=== PATIENT | female | born 1940 | race Caucasian/White ===

== ENCOUNTER 2020-08-02 05:57 | Inpatient (IN) | payer MEDICARE, OTHER ==
[2020-08-02] MEDS ORDERED: Nitroglycerin 2% Ointment 1 INCH/1 GM Packet ONE (06:30)
[2020-08-02 07:07] LABS: #Eosinphils 0.1 thou/uL (0.0-0.7); #Lymphocytes 0.7 thou/uL (1.20-3.40); #Monocytes 0.8 thou/uL (0.11-0.59); #Neutrophils 7.3 thou/uL (1.40-6.50); %Basophils 0.3 % (0.0-1.0); %Eosinophils 0.7 % (0.0-10.0); %Lymphocytes 7.4 % (21.0-51.0); %Monocytes 9.1 % (0.0-10.0); %Neutrophils 82.4 % (42.0-75.0); Hemoglobin 8.7 g/dL (12.0-16.0); Mean Corpuscular HGB CONC 30.9 g/dL (32.0-36.0); Mean Corpuscular Hemoglobin 27.4 pg (27.0-31.0); Mean Corpuscular Volume 88.7 fL (78.0-98.0); Mean Platelet Volume 7.7 fL (7.4-10.4); Platelet Count 253 thou/uL (130-400); RBC Distribution Width 17.1 % (11.5-14.5); Red Blood Cell (RBC) Count 3.17 mill/uL (4.20-5.40); White Blood Cell (WBC) Count 8.8 thou/uL (4.8-10.8)
[2020-08-02 07:29] LABS: ALT (SGPT) 7 U/L (8-55); AST (SGOT) 17 U/L (5-34); Albumin 3.3 g/dL (3.4-4.8); Alkaline Phosphatase 52 U/L (40-110); Anion Gap 15 mmol/L (10-20); BUN (Urea Nitrogen) 20 mg/dL (9.8-20.1); Bilirubin, Total 0.5 mg/dL (0.2-1.2); Calc. Creatinine Clearance 0 mL/min (70-130); Carbon Dioxide 31 mmol/L (23-31); Chloride 97 mmol/L (98-107); Estimated GFR-MDRD 11; Globulin 3.1 g/dL (2.4-3.5); Glucose 145 mg/dL (83-110); Potassium 3.4 mmol/L (3.5-5.1); Protein, Total 6.4 g/dL (6.0-8.3); Sodium 140 mmol/L (136-145)
[2020-08-02] MEDS ORDERED: Labetalol HCl 100 MG/20 ML VIAL ONE (07:44)
[2020-08-02 07:51] LABS: CKMB 2.5 ng/mL (0-6.6)
[2020-08-02] MEDS ORDERED: Ondansetron PF 4 MG/2 ML Vial IVP PRN (08:35)
[2020-08-02] MEDS ORDERED: HumaLOG 300 UNITS/3 ML VIAL SC PRN (08:37)
[2020-08-02] MEDS ORDERED: Dextrose 50% Abboject 50 ML SYRINGE SLOW IVP PRN (08:37)
[2020-08-02] MEDS ORDERED: Dextrose 5% in Water 1,000 ML IV PRN (08:37)
--- NOTE | 2020-08-02 09:05 | PDOC.EVN ---
Event Note - Event Note Event Note: Addendum to dictated H&P: Discussed Pleural effusion management with pulmonology. Recommended HD rather than thoracentesis since her effusion is chronic in nature.
[2020-08-02 10:49] VITALS: BMI 20.7
[2020-08-02] MEDS ORDERED: FLU VACC QS2020-21(65YR UP)/PF 240 MCG/0.7 ML SYRINGE IM ONE (11:15)
--- NOTE | 2020-08-02 11:26 | RAD ---
PORTABLE CHEST: HISTORY: Difficulty breathing. COMPARISON: 12/22/2019 exam. FINDINGS: Heart size is enlarged. There are postop sternotomy changes. Right-sided pleural and parenchymal alvaro ng changes are fairly similar to the prior examination. There is slight increased appearance to the pleural changes with less aeration of the right lung base. There is pulmonary vascular engorgement. There is a smaller left pleural effusion. There are some patchy mid lung field parenchymal changes on the left which could be on the basis of edema. Infiltrate is not excluded. IMPRESSION: 1. Large right pleural effusion with associated lung changes. Findings are slightly more pronounced but fairly similar to a 12/22/2019 exam. 2. Left-sided pleural effusion which is small. Increased interstitial markings and pulmonary vascul ar engorgement suggests some element of edema. POS: OFF
[2020-08-02 15:10] LABS: HBCM Index 0.08 S/CO (0-0.79); HBSAg Index 0.18 S/CO (0-0.99); Hep A IgM AB Non-Reactive (NonReactive); Hep A IgM S/CO 0.15 S/CO (0-0.79); Hep B Surf Ag Non-Reactive S/CO (NonReactive); Hep C IgG Ab Non-Reactive (NonReactive); Hep C Index 0.09 S/CO (0-0.79); Hepatitis B Core IgM Abs Non-Reactive (NonReactive)
--- NOTE | 2020-08-02 15:53 | HP ---
CHIEF COMPLAINT: Shortness of breath. HISTORY OF PRESENT ILLNESS: The patient is an 80-year-old female with past medical history of diabetes mellitus, type 2; hypertension; hyperlipidemia; end-stage renal disease, on hemodialysis; CHF; and coronary artery disease, status post stenting last year, who presented to the hospital with complaints of shortness of breath that started after her dialysis on Monday and progressed over the weekend. The patient's symptoms caused her to wake up from sleep earlier today. She was gasping for breath and her brought her to the emergency department. In the ER, the patient was found to be in respiratory distress and supplemental oxygen was administered to maintain her oxygen saturations in the normal range. Her cash applications coordinator, Dr. Moss was consulted and he recommended immediate hemodialysis. The patient denies chest pain, palpitations, nausea, vomiting, or dizziness. REVIEW OF SYSTEMS: Negative except as noted in HPI. PAST MEDICAL HISTORY: As noted above. PAST SURGICAL HISTORY: Includes AV fistula in the left arm, CABG surgery, and kidney surgery. SOCIAL HISTORY: The patient denies alcohol use, illicit drug use, or smoking. ALLERGIES: NO KNOWN DRUG ALLERGIES. FAMILY HISTORY: Noncontributory for her current presentation. PHYSICAL EXAMINATION: GENERAL: The patient is alert and oriented x3. HEENT: Her head is normocephalic and atraumatic. Extraocular muscles are intact. NECK: Supple. CHEST: Clear to auscultation on the left side and diminished on the right side. CARDIOVASCULAR: Revealed normal S1 and S2. Regular rate and rhythm. No murmurs, rubs, or gallops. ABDOMEN: Soft, nontender, and nondistended. EXTREMITIES: No significant edema on her lower extremities. NEUROLOGIC: Unremarkable for any focal deficits. PERTINENT DATA: The patient's chest x-ray revealed right-sided pleural effusion and her laboratory studies revealed elevated BNP of 4400, slightly elevated troponin of 0.116, and creatinine level of 4 with potassium of 3.4. Her CBC revealed mild anemia with hemoglobin of 8.7. ASSESSMENT: 1. Acute respiratory failure with hypoxia. 2. Volume overload. 3. End-stage renal disease, on hemodialysis. 4. Congestive heart failure. 5. Coronary artery disease, status post coronary artery bypass grafting and stenting. 6. Moderate right-sided pleural effusion. PLAN: The patient will be admitted to the patient will be admitted to telemetry unit. She will undergo immediate dialysis today and subsequent dialysis per Nephrology recommendations. I have restarted her cardiac medications including aspirin, Plavix, carvedilol, hydralazine, Imdur, and losartan. We will repeat echocardiogram since I do not see recent one in the system. There is a moderate to large pleural effusion on the right side on chest x-ray. I will consult with Pulmonology on whether we need to drain this or manage fluid removal with dialysis. Low-dose enoxaparin for DVT prophylaxis. The patient is generally weak and has been using a walker and wheelchair at home. Her stated that her condition has deteriorated since she started outpatient physical therapy due to the coronavirus pandemic. I will consult PT and OT for evaluation and treatment. Job ID: [id number]
[2020-08-02] MEDS: Aspirin 81 mg Enteric Coated Tablet PO SCH (15:59)
[2020-08-02] MEDS: Clopidogrel Bisulfate 75 MG TAB PO SCH (15:59)
[2020-08-02] MEDS: hydrALAZINE 25 MG TAB PO SCH ×3 (16:00→20:36)
[2020-08-02] MEDS: Losartan 25 MG TAB PO SCH (16:00)
[2020-08-02] MEDS: Famotidine 20 MG TAB PO SCH ×2 (16:00→20:36)
[2020-08-02] MEDS: Enoxaparin Sodium 30 MG/0.3 ML SYRINGE SC SCH (16:00)
[2020-08-02] MEDS: Sevelamer Carbonate 800 MG TAB PO SCH ×2 (16:01→16:37)
[2020-08-02] MEDS: Carvedilol 6.25 MG TAB PO SCH (16:37)
[2020-08-02 19:13] LABS: HBSAB Concentration Less than 8.00 mIU/mL; HBSAg Index 0.18 S/CO (0-0.99); Hep B Core Total Ab Non-Reactive (NonReactive); Hep B Core Total Index 0.13 S/CO (0-0.79); Hep B Surf AB Non-Reactive (NonReactive); Hep B Surf Ag Non-Reactive S/CO (NonReactive)
[2020-08-02] MEDS: Atorvastatin Calcium 40 MG TAB PO SCH (20:36)
[2020-08-02] MEDS: Acetaminophen 325 MG TAB PO PRN (20:48)
[2020-08-03 04:40] LABS: #Lymphocytes 0.6 thou/uL (1.20-3.40); #Monocytes 0.8 thou/uL (0.11-0.59); #Neutrophils 6.2 thou/uL (1.40-6.50); %Basophils 0.6 % (0.0-1.0); %Eosinophils 0.5 % (0.0-10.0); %Lymphocytes 7.7 % (21.0-51.0); %Monocytes 10.7 % (0.0-10.0); %Neutrophils 80.6 % (42.0-75.0); Hemoglobin 9.2 g/dL (12.0-16.0); Mean Corpuscular HGB CONC 30.4 g/dL (32.0-36.0); Mean Corpuscular Hemoglobin 26.9 pg (27.0-31.0); Mean Corpuscular Volume 88.7 fL (78.0-98.0); Platelet Count 248 thou/uL (130-400); RBC Distribution Width 17.2 % (11.5-14.5); White Blood Cell (WBC) Count 7.7 thou/uL (4.8-10.8)
[2020-08-03 05:00] LABS: Anion Gap 16 mmol/L (10-20); BUN (Urea Nitrogen) 17 mg/dL (9.8-20.1); Calc. Creatinine Clearance 11 mL/min (70-130); Calcium 8.4 mg/dL (7.8-10.44); Carbon Dioxide 26 mmol/L (23-31); Chloride 100 mmol/L (98-107); Estimated GFR-MDRD 14; Glucose 130 mg/dL (83-110); Potassium 4.1 mmol/L (3.5-5.1); Sodium 138 mmol/L (136-145)
--- NOTE | 2020-08-03 06:10 | CON ---
DATE OF CONSULTATION: 08/02/2020 CONSULTING PHYSICIAN: Dr. Granados from ER. REASON FOR CONSULTATION: Fluid overload, end-stage renal disease management and care. REASON FOR ADMISSION: Shortness of breath. HISTORY OF PRESENT ILLNESS: An 80-year-old white female with history of end-stage renal disease, on hemodialysis; diastolic heart ; coronary artery disease; came to the hospital with shortness of breath. The patient woke up this morning with shortness of breath, so they came to the hospital. She was hypoxic too and was found to have fluid overload and pleural effusion. Nephrology consulted for maintenance hemodialysis. The patient is still having short of breath. She was taken to dialysis and seen during dialysis. No nausea, vomiting, chest pain, or palpitation reported. PAST MEDICAL HISTORY: Positive for congestive heart failure, end-stage renal disease, coronary artery disease, anemia, type 2 diabetes, GI bleed. PAST SURGICAL HISTORY: CABG, hemorrhoidectomy, femoral repair, breast tumor removal, tonsillectomy, D and C, coronary artery stents. HOME MEDICATIONS: Reviewed. ALLERGIES: ERYTHROMYCIN, SOCIAL HISTORY: No smoking, alcohol, or illicit drugs. FAMILY HISTORY: Positive for stroke. REVIEW OF SYSTEMS: The following complete review of systems was negative, unless otherwise mentioned in the HPI or below: CONSTITUTIONAL: Weight loss or gain, ability to conduct usual activities. SKIN: Rash, itching. EYES: Double vision, pain. ENT/MOUTH: Nose bleeding, neck stiffness, pain, tenderness. CARDIOVASCULAR: Palpitations, dyspnea on exertion, orthopnea. RESPIRATORY: Shortness of breath, wheezing, cough, hemoptysis, fever or night sweats. GASTROINTESTINAL: Poor appetite, abdominal pain, heartburn, nausea, vomiting, constipation, or diarrhea. GENITOURINARY: Urgency, frequency, dysuria, nocturia. MUSCULOSKELETAL: Pain, swelling. NEUROLOGIC/PSYCHIATRIC: Anxiety, depression. ALLERGY/IMMUNOLOGIC: Skin rash, bleeding tendency. PHYSICAL EXAMINATION: GENERAL: This is a well-built female, in no apparent distress. VITAL SIGNS: Temperature 97.6, pulse 71, respiratory rate 20, blood pressure 120/57. HEENT: Atraumatic, normocephalic. Oral mucosa is moist. NECK: Supple. CV: S1 and S2. Rate and rhythm regular. RESPIRATORY: Clear. GI: Abdomen is soft. MUSCULOSKELETAL: No tenderness. No edema. DERMATOLOGIC: No skin rash. NEUROLOGIC: Alert and awake. PSYCHIATRIC: Normal mood and affect LABORATORY DATA: Hemoglobin is 8.7. Potassium 3.4, BUN is 20, creatinine 4.07. ASSESSMENT AND PLAN: 1. End-stage renal disease. Continue dialysis as tolerated. Plan to have dialysis today for fluid removal and then continue dialysis Monday, Monday, and Monday. 2. Hypokalemia. We will use 4K bath. 3. Edema. 4. Hypertension. 5. Anemia. We will add Epogen. 6. Hypoalbuminemia. Limit fluid intake. Follow with Pulmonology for pleural effusion. We will attempt to have ultrafiltration with dialysis and monitor pleural effusion. Thank you for the consult. We will follow. Job ID: [id number]
[2020-08-03] MEDS: Carvedilol 6.25 MG TAB PO SCH ×2 (08:00→16:40)
[2020-08-03] MEDS: hydrALAZINE 25 MG TAB PO SCH ×3 (08:00→21:31)
[2020-08-03] MEDS: Sevelamer Carbonate 800 MG TAB PO SCH ×3 (08:00→16:36)
--- NOTE | 2020-08-03 10:00 | PDOC.HOSPP ---
- Subjective Encounter Date: 08/03/20 Encounter Time: 09:59 Subjective: Patient seen and examined. No new complaints. No overnight events. Reports feeling better, "I am able to breath now". Denies any chest pain, endorses feeling slightly SOB on 4L NC. Denies any abdominal pain, N/V/D. - Objective Vital Signs & Weight: Vital Signs (12 hours) Temp Pulse Resp BP Pulse Ox 08/03/20 03:25 97.6 F 64 18 138/60 100 08/02/20 23:49 97.8 F 66 18 142/59 H 100 Weight Weight 106 lb 6.4 oz I&O: 08/02/20 08/03/20 08/04/20 06:59 06:59 06:59 Intake Total 480 Output Total 0 Balance 480 Result Diagrams: 08/03/20 04:08 08/03/20 04:08 Additional Labs: Accuchecks 08/02/20 08/02/20 20:55 17:13 POC Glucose 132 H 159 H Hospitalist ROS - Review of Systems Constitutional: denies: fever, chills Respiratory: reports: shortness of breath (mild, improved). denies: cough, hem optysis, pleuritic pain, sputum, wheezing Cardiovascular: denies: chest pain, palpitations, edema, light headedness Gastrointestinal: denies: nausea, vomiting, abdominal pain, constipation, melena, hematochezia Neurological: denies: weakness, change in speech, confusion All other systems reviewed; all pertinent +/- noted in HPI/Subj - Medication Medications: Active Medications Generic Name Dose Route Start Last Admin Trade Name Marilin PRN Reason Stop Dose Admin Acetaminophen 650 mg 08/02/20 08:35 08/02/20 20:48 Acetaminophen 325 Mg Tab PO 650 mg Q4H PRN Administration Headache/Fever/Mild Pain (1-3) Aspirin 81 mg 08/02/20 09:00 08/02/20 15:59 Aspirin 81 Mg Enteric Coated Tablet PO Not Given DAILY ROSALIND Atorvastatin Calcium 80 mg 08/02/20 21:00 08/02/20 20:36 Atorvastatin Calcium 40 Mg Tab PO 80 mg HS ROSALIND Administration Carvedilol 12.5 mg 08/02/20 17:00 08/02/20 16:37 Carvedilol 6.25 Mg Tab PO 12.5 mg BID-WM ROSALIND Administration Clopidogrel Bisulfate 75 mg 08/02/20 09:00 08/02/20 15:59 Clopidogrel Bisulfate 75 Mg Tab PO Not Given DAILY [facility] Enoxaparin Sodium 30 mg 08/02/20 09:00 08/02/20 16:00 Enoxaparin Sodium 30 Mg/0.3 Ml Syringe SC Not Given 0900 ROSALIND Hydralazine HCl 25 mg 08/02/20 09:00 08/02/20 20:36 Hydralazine 25 Mg Tab PO 25 mg TID ROSALIND Administration Isosorbide Mononitrate 30 mg 08/02/20 09:00 08/02/20 16:00 Isosorbide Mononitrate Er 30 Mg Tab PO Not Given DAILY [facility] Losartan Potassium 50 mg 08/02/20 09:00 08/02/20 16:00 Losartan 25 Mg Tab PO Not Given DAILY [facility] Ondansetron HCl 4 mg 08/02/20 08:35 08/02/20 20:36 Ondansetron Pf 4 Mg/2 Ml Vial IVP 4 mg Q6H PRN Administration Nausea/Vomiting Sevelamer Carbonate 800 mg 08/02/20 12:00 08/02/20 16:37 Sevelamer Carbonate 800 Mg Tab PO 800 mg TID-WM ROSALIND Administration - Exam General Appearance: NAD, awake alert Eye: anicteric sclera ENT: normocephalic atraumatic Neck: supple, symmetric, no JVD Heart: RRR, no murmur, no gallops, no rubs, normal peripheral pulses Respiratory: no wheezes, no ronchi, no tachypnea Respiratory - other findings: Right side diminished Gastrointestinal: soft, non-tender, non-distended, normal bowel sounds, no bruit, no guarding, no rigidity Extremities: no cyanosis, no edema Skin: no rashes Neurological: cranial nerve grossly intact, no focal deficits Psychiatric: normal affect, A&O x 3 Hosp A/P (1) Acute respiratory failure with hypoxia Code(s): J96.01 - ACUTE RESPIRATORY FAILURE WITH HYPOXIA Status: Acute (2) Volume overload Code(s): E87.70 - FLUID OVERLOAD, UNSPECIFIED Status: Acute (3) ESRD (end stage renal disease) on dialysis Code(s): N18.6 - END STAGE RENAL DISEASE; Z99.2 - DEPENDENCE ON RENAL DIALYSIS Status: Chronic (4) CHF (congestive heart failure) Code(s): I50.9 - HEART FAILURE, UNSPECIFIED Status: Chronic (5) HTN (hypertension) Code(s): I10 - ESSENTIAL (PRIMARY) HYPERTENSION Status: Chronic (6) DMII (diabetes mellitus, type 2) Status: Chronic (7) Hypokalemia Code(s): E87.6 - HYPOKALEMIA Status: Resolved (8) Anemia, chronic disease Code(s): D63.8 - ANEMIA IN OTHER CHRONIC DISEASES CLASSIFIED ELSEWHERE Status: Chronic - Plan # Acute hypoxic respiratory failure Currently on 4L NC (resting on upper lip), no acute distress Speaking in full sentences Continue supplemental oxygen echo pending. # Fluid volume overload Moderate Left pleural effusion, chronic Nephrology to treat with HD # ESRD Schedule is MWF by Dr. Moss Receiving HD today Appreciate nephrology recs. #CHF Echo pending # HTN Continue home meds - Coreg, imdur, hydralazine, losartan Continue to monitor BP # DMII Mild sliding scale Add bedtime ISS AC/HS #hypokalemia K 4.1 Nephrology recs appreciated Treating with K freddie #Anemia, chronic disease Likely d/t ESRD Nephrology recs appreciated Started on Epoetin Hgb. 9.2 H[address] Cloud.
[2020-08-03] MEDS ORDERED: HumaLOG 300 UNITS/3 ML VIAL SC PRN (10:05)
--- NOTE | 2020-08-03 12:27 | PRG ---
DATE OF SERVICE: 08/03/2020 SUBJECTIVE: An 80-year-old female, being seen for end-stage renal disease. The patient denied nausea, vomiting, or chest pain. PHYSICAL EXAMINATION: General: The patient is awake and alert. Vital Signs: Afebrile, pulse 74, breathing at 16, blood pressure 107/68. HEENT: Head normocephalic and atraumatic. Eyes intact, no ulcers. Nose intact, no ulcers. Ears intact, no ulcers. Neck: Supple. No JVD. Chest: Symmetrical and clear. Cardiovascular: Shows S1 and S2, no rub, no murmur. Gastrointestinal: Abdomen is soft, bowel sounds positive. Extremities: Show no edema or ulcers. Skin: Shows no rash or petechiae. Musculoskeletal: Shows no joint swelling or stiffness. Genitourinary: Shows no Arthur or CVA tenderness. Neurologic: Motor intact. Cranial nerves intact. LABORATORY DATA: Showed hemoglobin 9.2. ASSESSMENT AND PLAN: 1. Stage 6 chronic kidney disease, stable. 2. Hypertension, stable. 3. Anemia, stable. 4. Medication based on GFR, appropriate. Job ID: [id number]
[2020-08-03 14:00] LABS: SARS-CoV-2 MS2 Positive; SARS-CoV-2 N Gene Negative; SARS-CoV-2 S Gene Negative; SARS-CoV-2 by NAA Not Detected (NotDetected); SARS-CoV-2 orf1ab Negative
[2020-08-03] MEDS: FLUoxetine HCl 20 MG CAP PO SCH (14:06)
[2020-08-03] MEDS: Clopidogrel Bisulfate 75 MG TAB PO SCH (14:07)
[2020-08-03] MEDS: Losartan 25 MG TAB PO SCH (14:07)
[2020-08-03] MEDS: Aspirin 81 mg Enteric Coated Tablet PO SCH (14:07)
[2020-08-03] MEDS: Enoxaparin Sodium 30 MG/0.3 ML SYRINGE SC SCH (14:08)
[2020-08-03] MEDS: EPOETIN ALFA-EPBX (ESRD) 10,000 UNIT/ML VIAL IVP SCH (16:37)
[2020-08-03] MEDS: Famotidine 20 MG TAB PO SCH (21:32)
[2020-08-03] MEDS: Atorvastatin Calcium 40 MG TAB PO SCH (21:32)
[2020-08-04 04:36] LABS: #Basophils 0.1 thou/uL (0.0-0.2); #Eosinphils 0.1 thou/uL (0.0-0.7); #Lymphocytes 0.9 thou/uL (1.20-3.40); #Monocytes 0.9 thou/uL (0.11-0.59); #Neutrophils 4.7 thou/uL (1.40-6.50); %Basophils 0.8 % (0.0-1.0); %Eosinophils 1.1 % (0.0-10.0); %Lymphocytes 13.1 % (21.0-51.0); %Monocytes 13.9 % (0.0-10.0); Hemoglobin 9.2 g/dL (12.0-16.0); Mean Corpuscular HGB CONC 30.9 g/dL (32.0-36.0); Mean Corpuscular Hemoglobin 27.1 pg (27.0-31.0); Mean Corpuscular Volume 87.7 fL (78.0-98.0); Mean Platelet Volume 8.1 fL (7.4-10.4); Platelet Count 236 thou/uL (130-400); RBC Distribution Width 17.2 % (11.5-14.5); Red Blood Cell (RBC) Count 3.41 mill/uL (4.20-5.40); White Blood Cell (WBC) Count 6.5 thou/uL (4.8-10.8)
[2020-08-04 04:56] LABS: Anion Gap 15 mmol/L (10-20); BUN (Urea Nitrogen) 16 mg/dL (9.8-20.1); Calc. Creatinine Clearance 15 mL/min (70-130); Calcium 8.7 mg/dL (7.8-10.44); Carbon Dioxide 28 mmol/L (23-31); Chloride 99 mmol/L (98-107); Estimated GFR-MDRD 20; Glucose 88 mg/dL (83-110); Potassium 3.6 mmol/L (3.5-5.1); Sodium 138 mmol/L (136-145)
[2020-08-04] MEDS: Sevelamer Carbonate 800 MG TAB PO SCH ×3 (09:11→18:17)
[2020-08-04] MEDS: hydrALAZINE 25 MG TAB PO SCH ×2 (09:12→21:24)
[2020-08-04] MEDS: Aspirin 81 mg Enteric Coated Tablet PO SCH (09:12)
[2020-08-04] MEDS: Clopidogrel Bisulfate 75 MG TAB PO SCH (09:12)
[2020-08-04] MEDS: Losartan 25 MG TAB PO SCH (09:12)
[2020-08-04] MEDS: FLUoxetine HCl 20 MG CAP PO SCH ×2 (09:12→21:24)
[2020-08-04] MEDS: Carvedilol 6.25 MG TAB PO SCH ×2 (09:12→18:16)
[2020-08-04] MEDS: Enoxaparin Sodium 30 MG/0.3 ML SYRINGE SC SCH (09:13)
--- NOTE | 2020-08-04 16:56 | PDOC.HOSPP ---
- Subjective Encounter Date: 08/04/20 Encounter Time: 16:50 Subjective: f/u for CHF/volume overload in context of ESRD with HD. Feel SOB but overall improved. Still weak and taking small percentage of meals. - Objective Vital Signs & Weight: Vital Signs (12 hours) Temp Pulse Pulse Pulse Resp BP BP 08/04/20 12:48 64 83 120/59 L 08/04/20 11:50 98.4 F 71 16 08/04/20 09:12 70 142/59 H 08/04/20 08:00 98.2 F 70 18 BP BP Pulse Ox Pulse Ox Pulse Ox 08/04/20 12:48 121/60 100 100 08/04/20 11:50 120/59 L 99 08/04/20 09:12 08/04/20 08:00 142/89 H 100 Weight Weight 99 lb 11.2 oz I&O: 08/03/20 08/04/20 08/05/20 06:59 06:59 06:59 Intake Total 480 480 200 Output Total 0 0 Balance 480 480 200 Result Diagrams: 08/04/20 03:53 08/04/20 03:53 Additional Labs: Accuchecks 08/04/20 08/04/20 08/03/20 11:19 05:54 20:57 POC Glucose 97 91 91 Laboratory Tests 08/02/20 08/02/20 08/02/20 06:58 06:58 06:58 Hgb 8.7 L Potassium 3.4 L Creatinine 4.07 H B-Natriuretic Peptide 4409.7 H SARS-CoV-2 (PCR) 08/02/20 08/03/20 08/03/20 09:03 04:08 04:08 Hgb 9.2 L Potassium Creatinine 3.21 H B-Natriuretic Peptide SARS-CoV-2 (PCR) Not Detected Radiology Reviewed by me: Yes (PCXR - R>L pleural effusion, +edema) EKG Reviewed by me: Yes (Tele - SR) Hospitalist ROS - Medication Medications: Active Medications Generic Name Dose Route Start Last Admin Trade Name Freq PRN Reason Stop Dose Admin Acetaminophen 650 mg 08/02/20 08:35 08/02/20 20:48 Acetaminophen 325 Mg Tab PO 650 mg Q4H PRN Administration Headache/Fever/Mild Pain (1-3) Aspirin 81 mg 08/02/20 09:00 08/04/20 09:12 Aspirin 81 Mg Enteric Coated Tablet PO 81 mg DAILY ROSALIND Administration Atorvastatin Calcium 80 mg 08/02/20 21:00 08/03/20 21:32 Atorvastatin Calcium 40 Mg Tab PO 80 mg HS ROSALIND Administration Carvedilol 12.5 mg 08/02/20 17:00 08/04/20 09:12 Carvedilol 6.25 Mg Tab PO 12.5 mg BID-WM ROSALIND Administration Clopidogrel Bisulfate 75 mg 08/02/20 09:00 08/04/20 09:12 Clopidogrel Bisulfate 75 Mg Tab PO 75 mg DAILY ROSALIND Administration Enoxaparin Sodium 30 mg 08/02/20 09:00 08/04/20 09:13 Enoxaparin Sodium 30 Mg/0.3 Ml Syringe SC 30 mg 09 ROSALIND Administration Epoetin Ferny-epbx 10,000 unit 08/03/20 09:00 08/03/20 16:37 Epoetin Ferny-Epbx (Esrd) 10,000 Unit/Ml Vial IVP 10,000 unit MoWeFr ROSALIND Administration Famotidine 20 mg 08/03/20 21:00 08/03/20 21:32 Famotidine 20 Mg Tab PO 20 mg 2100 ROSALIND Administration Fluoxetine HCl 20 mg 08/03/20 09:00 08/04/20 09:12 Fluoxetine Hcl 20 Mg Cap PO 20 mg DAILY ROSALIND Administration Hydralazine HCl 25 mg 08/02/20 09:00 08/04/20 09:12 Hydralazine 25 Mg Tab PO 25 mg TID ROSALIND Administration Isosorbide Mononitrate 30 mg 08/02/20 09:00 08/04/20 09:12 Isosorbide Mononitrate Er 30 Mg Tab PO 30 mg DAILY ROSALIND Administration Losartan Potassium 50 mg 08/02/20 09:00 08/04/20 09:12 Losartan 25 Mg Tab PO 50 mg DAILY ROSALIND Administration Ondansetron HCl 4 mg 08/02/20 08:35 08/02/20 20:36 Ondansetron Pf 4 Mg/2 Ml Vial IVP 4 mg Q6H PRN Administration Nausea/Vomiting Sevelamer Carbonate 800 mg 08/02/20 12:00 08/04/20 13:56 Sevelamer Carbonate 800 Mg Tab PO 800 mg TID-WM ROSALIND Administration Sodium Chloride 10 ml 08/03/20 21:00 08/04/20 09:13 Flush - Normal Saline 10 Ml Syringe IVF 10 ml Q12HR ROSALIND Administration - Exam General Appearance: NAD, ill appearing Eye: PERRL, anicteric sclera ENT: normocephalic atraumatic, no oropharyngeal lesions Neck: supple, symmetric, no JVD, no thyromegaly, no lymphadenopathy Heart: RRR, no gallops, no rubs, normal peripheral pulses Heart - other findings: S1, S2 Respiratory: tachypneic Respiratory - other findings: diminished in bases, occ rhonchi Gastrointestinal: soft, non-tender, non-distended, normal bowel sounds, no palpable masses Extremities: no cyanosis, no edema Skin: normal turgor Neurological: cranial nerve grossly intact, no new deficit Musculoskeletal: generalized weakness Psychiatric: A&O x 3, flat affect Hosp A/P (1) Acute on chronic diastolic (congestive) heart failure Code(s): I50.33 - ACUTE ON CHRONIC DIASTOLIC (CONGESTIVE) HEART FAILURE Status: Acute Plan: Continue HD for volume removal, EF preserved 55-60% (2) Acute and chronic respiratory failure with hypoxia Code(s): J96.21 - ACUTE AND CHRONIC RESPIRATORY FAILURE WITH HYPOXIA Status: Acute Plan: Chronic O2 supplementation at home, continue pulmonary support, volume removal with HD (3) ESRD (end stage renal disease) on dialysis Code(s): N18.6 - END STAGE RENAL DISEASE; Z99.2 - DEPENDENCE ON RENAL DIALYSIS Status: Chronic Plan: HD per Renal service, will continue on outpt bases (4) Volume overload Code(s): E87.70 - FLUID OVERLOAD, UNSPECIFIED Status: Acute (5) HTN (hypertension) Code(s): I10 - ESSENTIAL (PRIMARY) HYPERTENSION Status: Chronic Qualifiers: Hypertension type: essential hypertension Qualified Code(s): I10 - Essential (primary) hypertension Plan: Resume home BP regimen, serial BP monitoring - Plan plan discussed w/ family, PT/OT, psych social worker, respiratory therapy, out of bed/ambulate, DVT proph w/SCDs Stable currently HD per Renal service O2 support, home O2 prior to admit 2D echo pending OOB with PT AM lab: CMP, CBC
--- NOTE | 2020-08-04 19:42 | PRG ---
DATE OF SERVICE: 08/04/2020 SUBJECTIVE: An 80-year-old female being seen for end-stage renal disease. The patient denied nausea, vomiting, or chest pain. PHYSICAL EXAMINATION: General: The patient is awake and alert. Vital Signs: Afebrile, pulse 75, breathing at 16, blood pressure 120/59. HEENT: Head normocephalic and atraumatic. Eyes intact, no ulcers. Nose intact, no ulcers. Ears intact, no ulcers. Neck: Supple. No JVD. Chest: Symmetrical and clear. Cardiovascular: Shows S1 and S2, no rub, no murmur. Gastrointestinal: Abdomen is soft, bowel sounds positive. Extremities: Show no edema or ulcers. Skin: Shows no rash or petechiae. Musculoskeletal: Shows no joint swelling or stiffness. Genitourinary: Shows no Arthur or CVA tenderness. Neurologic: Motor intact. Cranial nerves intact. LABORATORY DATA: Labs reviewed. ASSESSMENT AND PLAN: 1. Stage 6 chronic kidney disease, continue hemodialysis. 2. Hypertension, stable. 3. Anemia, stable. 4. Medication based on GFR, appropriate. Job ID: [id number]
[2020-08-04] MEDS: Acetaminophen 325 MG TAB PO PRN (21:24)
[2020-08-04] MEDS: Atorvastatin Calcium 40 MG TAB PO SCH (21:24)
[2020-08-04] MEDS: Famotidine 20 MG TAB PO SCH (21:25)
[2020-08-05 04:10] LABS: #Eosinphils 0.1 thou/uL (0.0-0.7); #Neutrophils 4.6 thou/uL (1.40-6.50); %Basophils 0.3 % (0.0-1.0); %Eosinophils 1.1 % (0.0-10.0); %Monocytes 14.3 % (0.0-10.0); %Neutrophils 69.3 % (42.0-75.0); Hemoglobin 9.1 g/dL (12.0-16.0); Mean Corpuscular Hemoglobin 27.1 pg (27.0-31.0); Mean Corpuscular Volume 87.4 fL (78.0-98.0); Mean Platelet Volume 8.2 fL (7.4-10.4); Platelet Count 249 thou/uL (130-400); Red Blood Cell (RBC) Count 3.37 mill/uL (4.20-5.40); White Blood Cell (WBC) Count 6.7 thou/uL (4.8-10.8)
[2020-08-05 04:48] LABS: ALT (SGPT) Less than 7 U/L (8-55); AST (SGOT) 12 U/L (5-34); Albumin 3.1 g/dL (3.4-4.8); Alkaline Phosphatase 50 U/L (40-110); Anion Gap 16 mmol/L (10-20); BUN (Urea Nitrogen) 34 mg/dL (9.8-20.1); Bilirubin, Total 0.3 mg/dL (0.2-1.2); Calc. Creatinine Clearance 8 mL/min (70-130); Calcium 8.7 mg/dL (7.8-10.44); Carbon Dioxide 26 mmol/L (23-31); Chloride 100 mmol/L (98-107); Estimated GFR-MDRD 11; Globulin 2.9 g/dL (2.4-3.5); Glucose 141 mg/dL (83-110); Potassium 3.7 mmol/L (3.5-5.1); Sodium 138 mmol/L (136-145)
--- NOTE | 2020-08-05 11:53 | PRG ---
DATE OF SERVICE: 08/05/2020 SUBJECTIVE: An 80-year-old female being seen for end-stage renal disease. The patient denies any nausea, vomiting, or chest pain. OBJECTIVE: GENERAL: On examination, the patient is awake and alert. VITAL SIGNS: Afebrile, pulse 75, breathing at 16, and blood pressure 132/62. HEENT: Head normocephalic and atraumatic. Eyes intact, no ulcers. Nose intact, no ulcers. Ears intact, no ulcers. NECK: Supple. No JVD. CHEST: Symmetrical and clear. CARDIOVASCULAR: Shows S1 and S2, no rub, no murmur. GASTROINTESTINAL: Abdomen is soft, bowel sounds positive. EXTREMITIES: Show no edema or ulcers. SKIN: Shows no rash or petechiae. MUSCULOSKELETAL: Shows no joint swelling or stiffness. GENITOURINARY: Shows no Arthur or CVA tenderness. NEUROLOGIC: Motor intact. Cranial nerves intact. LABORATORY DATA: Reviewed. ASSESSMENT AND PLAN: 1. Stage 6 chronic kidney disease, continue hemodialysis. 2. Hypertension, stable. 3. Anemia, stable. 4. Medications based on glomerular filtration rate are appropriate. Job ID: [id number]
[2020-08-05] MEDS ORDERED: ALPRAZolam 0.25 MG TAB PO PRN (14:47)
[2020-08-05] MEDS: Sevelamer Carbonate 800 MG TAB PO SCH ×2 (16:52→16:57)
[2020-08-05] MEDS: FLUoxetine HCl 20 MG CAP PO SCH ×2 (16:52→20:27)
[2020-08-05] MEDS: Clopidogrel Bisulfate 75 MG TAB PO SCH (16:53)
[2020-08-05] MEDS: Aspirin 81 mg Enteric Coated Tablet PO SCH (16:53)
[2020-08-05] MEDS: Losartan 25 MG TAB PO SCH (16:55)
[2020-08-05] MEDS: Enoxaparin Sodium 30 MG/0.3 ML SYRINGE SC SCH (16:55)
[2020-08-05] MEDS: Carvedilol 6.25 MG TAB PO SCH ×2 (16:56→17:00)
[2020-08-05] MEDS: hydrALAZINE 25 MG TAB PO SCH ×6 (16:56→20:28)
--- NOTE | 2020-08-05 16:58 | PDOC.HOSPP ---
- Subjective Encounter Date: 08/05/20 Encounter Time: 16:50 Subjective: f/u for CHF/volume overload in ESRD with HD today. Feels better overall and less SOB. - Objective Vital Signs & Weight: Vital Signs (12 hours) Temp Pulse Pulse Resp BP BP Pulse Ox 08/05/20 08:37 95 139/63 08/05/20 08:00 97.9 F 64 20 177/67 H 92 L Pulse Ox 08/05/20 08:37 100 08/05/20 08:00 Weight Weight 100 lb 12.8 oz I&O: 08/04/20 08/05/20 08/06/20 06:59 06:59 06:59 Intake Total 480 640 400 Output Total 0 Balance 480 640 400 Result Diagrams: 08/05/20 03:54 08/05/20 03:54 Additional Labs: Accuchecks 08/05/20 08/05/20 08/04/20 10:46 06:09 20:11 POC Glucose 125 H 129 H 186 H 08/04/20 17:15 POC Glucose 147 H Laboratory Tests 08/02/20 08/02/20 08/02/20 06:58 06:58 06:58 Hgb 8.7 L Potassium 3.4 L Creatinine 4.07 H B-Natriuretic Peptide 4409.7 H SARS-CoV-2 (PCR) 08/02/20 08/03/20 08/03/20 09:03 04:08 04:08 Hgb 9.2 L Potassium Creatinine 3.21 H B-Natriuretic Peptide SARS-CoV-2 (PCR) Not Detected EKG Reviewed by me: Yes (Tele - SR) Hospitalist ROS - Medication Medications: Active Medications Generic Name Dose Route Start Last Admin Trade Name Freq PRN Reason Stop Dose Admin Acetaminophen 650 mg 08/02/20 08:35 08/04/20 21:24 Acetaminophen 325 Mg Tab PO 650 mg Q4H PRN Administration Headache/Fever/Mild Pain (1-3) Aspirin 81 mg 08/02/20 09:00 08/04/20 09:12 Aspirin 81 Mg Enteric Coated Tablet PO 81 mg DAILY ROSALIND Administration Atorvastatin Calcium 80 mg 08/02/20 21:00 08/04/20 21:24 Atorvastatin Calcium 40 Mg Tab PO 80 mg HS ROSALIND Administration Carvedilol 12.5 mg 08/02/20 17:00 08/04/20 18:16 Carvedilol 6.25 Mg Tab PO 12.5 mg BID-WM ROSALIND Administration Clopidogrel Bisulfate 75 mg 08/02/20 09:00 08/04/20 09:12 Clopidogrel Bisulfate 75 Mg Tab PO 75 mg DAILY ROSALIND Administration Enoxaparin Sodium 30 mg 08/02/20 09:00 08/04/20 09:13 Enoxaparin Sodium 30 Mg/0.3 Ml Syringe SC 30 mg 0900 ROSALIND Administration Epoetin Ferny-epbx 10,000 unit 08/03/20 09:00 08/03/20 16:37 Epoetin Ferny-Epbx (Esrd) 10,000 Unit/Ml Vial IVP 10,000 unit MoWeFr ROSALIND Administration Famotidine 20 mg 08/03/20 21:00 08/04/20 21:25 Famotidine 20 Mg Tab PO 20 mg 2100 ROSALIND Administration Fluoxetine HCl 20 mg 08/04/20 21:00 08/04/20 21:24 Fluoxetine Hcl 20 Mg Cap PO 20 mg BID ROSALIND Administration Hydralazine HCl 25 mg 08/02/20 09:00 08/04/20 21:24 Hydralazine 25 Mg Tab PO 25 mg TID ROSALIND Administration Isosorbide Mononitrate 30 mg 08/02/20 09:00 08/04/20 09:12 Isosorbide Mononitrate Er 30 Mg Tab PO 30 mg DAILY ROSALIND Administration Losartan Potassium 50 mg 08/02/20 09:00 08/04/20 09:12 Losartan 25 Mg Tab PO 50 mg DAILY ROSALIND Administration Ondansetron HCl 4 mg 08/02/20 08:35 08/02/20 20:36 Ondansetron Pf 4 Mg/2 Ml Vial IVP 4 mg Q6H PRN Administration Nausea/Vomiting Sevelamer Carbonate 800 mg 08/02/20 12:00 08/04/20 18:17 Sevelamer Carbonate 800 Mg Tab PO 800 mg TID-WM ROSALIND Administration Sodium Chloride 10 ml 08/03/20 21:00 08/04/20 21:25 Flush - Normal Saline 10 Ml Syringe IVF 10 ml Q12HR ROSALIND Administration - Exam General Appearance: NAD, awake alert Eye: PERRL, anicteric sclera ENT: normocephalic atraumatic, no oropharyngeal lesions Neck: supple, symmetric, no JVD, no thyromegaly, no lymphadenopathy Heart: RRR, no gallops, no rubs, normal peripheral pulses Heart - other findings: S1, S2 Respiratory: no tachypnea Respiratory - other findings: diminished in R lower base, occ rhonchi Gastrointestinal: soft, non-tender, non-distended, normal bowel sounds, no palpable masses Extremities: no cyanosis, no clubbing, no edema Skin: normal turgor, no lesions Neurological: cranial nerve grossly intact, no new deficit Musculoskeletal: normal tone, generalized weakness Psychiatric: A&O x 3, flat affect Hosp A/P (1) Acute on chronic diastolic (congestive) heart failure Code(s): I50.33 - ACUTE ON CHRONIC DIASTOLIC (CONGESTIVE) HEART FAILURE Status: Acute Plan: Continue HD for volume mgmt, overall stabilizing (2) Acute and chronic respiratory failure with hypoxia Code(s): J96.21 - ACUTE AND CHRONIC RESPIRATORY FAILURE WITH HYPOXIA Status: Acute Plan: Near baseline O2 requirement at home (3) ESRD (end stage renal disease) on dialysis Code(s): N18.6 - END STAGE RENAL DISEASE; Z99.2 - DEPENDENCE ON RENAL DIALYSIS Status: Chronic Plan: HD completed today (4) Volume overload Code(s): E87.70 - FLUID OVERLOAD, UNSPECIFIED Status: Acute Plan: Improved with HD (5) HTN (hypertension) Code(s): I10 - ESSENTIAL (PRIMARY) HYPERTENSION Status: Chronic Qualifiers: Hypertension type: essential hypertension Qualified Code(s): I10 - Ess ential (primary) hypertension - Plan plan discussed w/ family, PT/OT, social sciences department chair, DVT proph w/SCDs Stable currently HD per Renal service O2 support, home O2 prior to admit 2D echo with EF 50-55%, severe LAE OOB with PT AM lab: CMP, CBC Likely home in am
[2020-08-05] MEDS: EPOETIN ALFA-EPBX (ESRD) 10,000 UNIT/ML VIAL IVP SCH (19:46)
[2020-08-05] MEDS: Famotidine 20 MG TAB PO SCH (20:27)
[2020-08-05] MEDS: Atorvastatin Calcium 40 MG TAB PO SCH (20:27)
[2020-08-06] MEDS: Aspirin 81 mg Enteric Coated Tablet PO SCH (08:33)
[2020-08-06] MEDS: Carvedilol 6.25 MG TAB PO SCH (08:33)
[2020-08-06] MEDS: FLUoxetine HCl 20 MG CAP PO SCH (08:34)
[2020-08-06] MEDS: hydrALAZINE 25 MG TAB PO SCH (08:34)
[2020-08-06] MEDS: Clopidogrel Bisulfate 75 MG TAB PO SCH (08:34)
[2020-08-06] MEDS: Sevelamer Carbonate 800 MG TAB PO SCH ×2 (08:34→11:57)
[2020-08-06] MEDS: Losartan 25 MG TAB PO SCH (08:34)
[2020-08-06] MEDS: Enoxaparin Sodium 30 MG/0.3 ML SYRINGE SC SCH (08:34)
[2020-08-06 11:39] VITALS: BP 119/56; TEMP 97.9
--- NOTE | 2020-08-06 18:00 | PRG ---
DATE OF SERVICE: 08/06/2020 SUBJECTIVE: An 80-year-old female, being seen for end-stage renal disease. The patient denied nausea, vomiting, or chest pain. OBJECTIVE: General: The patient is awake and alert. Vital Signs: Afebrile, pulse 75, breathing at 16, blood pressure was 190/56. HEENT: Head normocephalic and atraumatic. Eyes intact, no ulcers. Nose intact, no ulcers. Ears intact, no ulcers. Neck: Supple. No JVD. Chest: Symmetrical and clear. Cardiovascular: Shows S1 and S2, no rub, no murmur. Gastrointestinal: Abdomen is soft, bowel sounds positive. Extremities: Show no edema or ulcers. Skin: Shows no rash or petechiae. Musculoskeletal: Shows no joint swelling or stiffness. Genitourinary: Shows no Arthur or CVA tenderness. Neurologic: Motor intact. Cranial nerves intact. LABORATORY DATA: Reviewed. ASSESSMENT AND PLAN: 1. Stage 6 chronic kidney disease. Plan dialysis. 2. Hypertension. 3. Anemia, stable. 4. Medication based on GFR appropriate. Job ID: [id number]
--- NOTE | 2020-08-07 07:55 | DIS ---
DATE OF ADMISSION: 08/02/2020 DATE OF DISCHARGE: 08/06/2020 DISCHARGE DIAGNOSES: 1. Acute on chronic diastolic congestive heart failure, improved. 2. Acute on chronic hypoxic respiratory failure with oxygen at 3 L/min by nasal cannula. 3. End-stage renal disease, on hemodialysis. 4. Volume overload secondary to acute on chronic diastolic congestive heart failure and end-stage renal disease, on hemodialysis. 5. Hypertension. 6. Normocytic anemia secondary to chronic kidney disease. CONSULTATION: Jorge Stanford MD with Nephrology Service. PERTINENT LABORATORY AND X-RAY FINDINGS: Creatinine ranged between 2.33 to 4.07. Estimated GFR ranged between 11 to 20. BNP 4410. Troponin I 0.116. CBC showed a hemoglobin range between 8.7 to 9.2. COVID-19 PCR not detected, 08/02/2020. Hepatitis A, B, and C panel negative. Portable chest x-ray dated 08/02/2020 showed large right pleural effusion with atelectasis. Smaller left-sided pleural effusion. 2D transthoracic echocardiogram dated 08/03/2020 showed ejection fraction of 50% to 55%. Severe left atrial enlargement. Aortic valve sclerosis. [id number]-[id number] tricuspid regurgitation. Moderately elevated pulmonary artery pressure. HOSPITAL COURSE: The patient initially presented with increased shortness of breath with chest imaging showing a large right-sided pleural effusion in the context of known congestive heart failure and end-stage renal disease, requiring hemodialysis. The patient was continued on oxygen supplementation, and evaluated by the Nephrology Service, undergoing urgent hemodialysis. The patient underwent multiple hemodialysis sessions during her hospital course with overall stabilization of respiratory status and volume removal. The patient received general pulmonary supportive management in addition to oxygen supplementation, titrating down to her baseline oxygen requirement at 3 L/min by nasal cannula continuously. 2D transthoracic echocardiogram was evaluated showing overall preserved ejection fraction in the 50% to 55% range. The patient's presentation consistent with diastolic heart failure exacerbation. I have examined the patient at the time of discharge and discussed followup instructions. The patient verbalized understanding and agreement, ready for discharge on 08/06/2020. DISCHARGE MEDICATIONS: 1. Atorvastatin 80 mg p.o. at bedtime. 2. Carvedilol 12.5 mg p.o. b.i.d. 3. Plavix 75 mg p.o. daily. 4. Pepcid 20 mg p.o. daily. 5. Fluoxetine 20 mg p.o. b.i.d. 6. Isosorbide mononitrate 30 mg p.o. daily. 7. Losartan 50 mg p.o. at bedtime. 8. Sevelamer 800 mg p.o. at bedtime. 9. Hydralazine 25 mg p.o. t.i.d. FOLLOWUP: The patient to follow up at the [facility] within 7 days of discharge. The patient may follow up with Dr. León with Cardiology Service. The patient will follow up with Dr. Moss and Dr. Stanford with Nephrology Service. CONDITION ON DISCHARGE: Fair. ACTIVITY: Ad-emerita. DIET: Renal. CODE STATUS: Do not attempt resuscitation. DISPOSITION: Home, 08/06/2020. Total time preparing and coordinating discharge, 33 minutes. Job ID: [id number]
== END 2020-08-06 14:00 | disposition home or self-care (01) | DRG 291 ==
LOC: ERS 05:57 → ERHOLD 08:08 → 2NO 10:21
PROVIDERS: ADMIT Internal Medicine; ATTEND Internal Medicine
PROC: 5A1D70Z Performance of Urinary Filtration, Intermittent, Less than 6 Hours Per Day (ICD-10-PCS; principal; 2020-08-02)
DX: I13.2 Hypertensive heart and chronic kidney disease with heart failure and with stage 5 chronic kidney disease, or end stage renal disease (principal); N18.6 End stage renal disease; I50.33 Acute on chronic diastolic (congestive) heart failure; J96.21 Acute and chronic respiratory failure with hypoxia; Z20.828 Contact with and (suspected) exposure to other viral communicable diseases; E11.22 Type 2 diabetes mellitus with diabetic chronic kidney disease; E78.5 Hyperlipidemia, unspecified; E78.00 Pure hypercholesterolemia, unspecified; I25.10 Atherosclerotic heart disease of native coronary artery without angina pectoris; E87.6 Hypokalemia; D63.1 Anemia in chronic kidney disease; E88.09 Other disorders of plasma-protein metabolism, not elsewhere classified; Z99.2 Dependence on renal dialysis; Z95.5 Presence of coronary angioplasty implant and graft; Z95.1 Presence of aortocoronary bypass graft
CPT/HCPCS: 36415; 36416; 71045; 80048; 80053; 80074; 82553; 83735; 83880; 84484; 85025; 86704; 86706; 87340; 87635; 90935; 93005; 93306; 93798; 96374; G0257; J1650; J2405; Q5105; U0003

== ENCOUNTER 2020-09-10 11:44 | Inpatient (IN) | payer MEDICARE ==
[2020-09-10] MEDS ORDERED: Sodium Chloride 0.9% 1,000 ML IV SCH (12:30)
[2020-09-10 13:26] LABS: ALT (SGPT) Less than 7 U/L (8-55); AST (SGOT) 16 U/L (5-34); Albumin 3.4 g/dL (3.4-4.8); Alkaline Phosphatase 67 U/L (40-110); Anion Gap 17 mmol/L (10-20); BUN (Urea Nitrogen) 20 mg/dL (9.8-20.1); Bilirubin, Total 0.3 mg/dL (0.2-1.2); Calc. Creatinine Clearance 0 mL/min (70-130); Calcium 9.6 mg/dL (7.8-10.44); Carbon Dioxide 33 mmol/L (23-31); Chloride 96 mmol/L (98-107); Estimated GFR-MDRD 13; Glucose 204 mg/dL (83-110); Potassium 3.2 mmol/L (3.5-5.1); Protein, Total 7.4 g/dL (6.0-8.3); Sodium 143 mmol/L (136-145)
[2020-09-10] MEDS ORDERED: Cefepime 2 GM VIAL ONE (13:28)
[2020-09-10] MEDS ORDERED: Vancomycin 1 GM/200 ML BAG ONE (13:28)
--- NOTE | 2020-09-10 13:29 | RAD ---
EXAM: 3 views of the left foot HISTORY: Wounds on the second toes and medial foot COMPARISON: 08/20/2020 FINDINGS: 3 views of the left foot shows questionable irregularity of the proximal phalanx of the sec ond toe. This is stable compared to the prior examination. Evaluation is limited secondary to extensive osteopenia. Vascular calcifications are seen. No focal osseous erosions are identified. No soft tissue swelling is seen. IMPRESSION: Irregularity of the proximal phalanx of the second toe may represent an acute or chronic fracture.
[2020-09-10 13:42] LABS: #Eosinphils 0.1 thou/uL (0.0-0.7); #Monocytes 1.4 thou/uL (0.11-0.59); #Neutrophils 9.5 thou/uL (1.40-6.50); %Basophils 0.1 % (0.0-1.0); %Eosinophils 0.7 % (0.0-10.0); %Lymphocytes 8.5 % (21.0-51.0); %Monocytes 11.6 % (0.0-10.0); %Neutrophils 79.1 % (42.0-75.0); Hemoglobin 9.6 g/dL (12.0-16.0); Mean Corpuscular Hemoglobin 26.1 pg (27.0-31.0); Mean Corpuscular Volume 87.1 fL (78.0-98.0); Mean Platelet Volume 7.5 fL (7.4-10.4); Platelet Count 308 thou/uL (130-400); RBC Distribution Width 18.6 % (11.5-14.5); Red Blood Cell (RBC) Count 3.67 mill/uL (4.20-5.40)
[2020-09-10 13:52] LABS: Anisocytosis SLIGHT = 6-15 cells (100X) (0-5/hpf); Hypochromia SLIGHT = 6-15 cells (100X) (0-5/hpf); MDiff Complete? YES; Ovalocytes SLIGHT = 2-5 cells (100X) (0-1/hpf); Platelet Morphology Comment Appears Adequate; Polychromasia SLIGHT = 2-3 cells (100X) (0-2/hpf)
[2020-09-10] MEDS ORDERED: EPINEPHrine 1 MG/10 ML Abboject SYRINGE ONE (13:59)
[2020-09-10] MEDS ORDERED: Calcium Chloride 1 GM/10 ML Abboject SYRINGE ONE (13:59)
[2020-09-10] MEDS ORDERED: EPINEPHrine 1 MG/ML AMP ONE (13:59)
[2020-09-10] MEDS ORDERED: Rocuronium Bromide 10 MG/ML (10ML VIAL) ONE (13:59)
[2020-09-10] MEDS ORDERED: Sodium Bicarb 50 MEQ/50 ML Abboject 8.4% SYRINGE ONE (13:59)
[2020-09-10] MEDS ORDERED: hydrALAZINE 25 MG TAB PO SCH (15:30)
--- NOTE | 2020-09-10 15:59 | HP ---
PRIMARY CARE PHYSICIAN: Betzy Oropeza, advanced nurse practitioner. CHIEF COMPLAINT: Infection of foot. HISTORY OF PRESENT ILLNESS: This is an 80-year-old white female who has a history of coronary artery disease with CABG, diabetes, end-stage renal disease, and vascular disease. She was recently in the hospital for diastolic congestive heart failure exacerbation and was sent to rehab afterward. She had just gotten out of rehab and went to see a industrial refrigeration mechanic and had her toenails cut. They put a bandage over her toes on the left side and it was the 's understanding that he was not supposed to take it off for quite some time, so he took it off a couple of days ago after it had been on there for a couple of weeks. At that time, he noted that she had a lot of redness and some blackness to one of her toes, so he brought her in today to the hospital. She has not had any other symptoms like fevers or chills, just the pain in her toes and forefoot. In the emergency room, the patient was found to have a necrotic second toe with eschar and cellulitis going up to the midfoot. Also, she met sepsis criteria. She was given fluids and IV antibiotics after cultures and is being admitted to the hospital. They did have a hard time palpating the dorsalis pedis pulse on her left side; however, they were able to Doppler it. REVIEW OF SYSTEMS: CONSTITUTIONAL: No fevers. No chills. EYES: No double vision or blurred vision. EARS, NOSE, AND THROAT: No congestion, drainage, or sore throat. CARDIOVASCULAR: No chest pain. No palpitations or racing heart. PULMONARY: No coughing, wheezing, or shortness of breath. GASTROINTESTINAL: No abdominal pain. No nausea or vomiting. No diarrhea or constipation. GENITOURINARY: The patient does not make urine anymore. MUSCULOSKELETAL: No muscle aches or joint pains besides the foot pain on her left side. SKIN: See HPI. NEUROLOGIC: No numbness, tingling, or focal weakness. PAST MEDICAL HISTORY: 1. Coronary artery disease, status post CABG. 2. Diastolic congestive heart failure. 3. End-stage renal disease, on dialysis and seen by Dr. Moss. 4. Type 2 diabetes mellitus. 5. Anemia of chronic renal disease. 6. History of gastrointestinal bleed. 7. Chronic hypoxic respiratory failure, on 4 L nasal cannula at home. PAST SURGICAL HISTORY: 1. CABG. 2. Hemorrhoidectomy. 3. Right partial hip replacement. 4. Breast tumor removal. 5. Tonsillectomy. 6. D and C. 7. Coronary artery stents. SOCIAL HISTORY: The patient does not smoke since . No alcohol or illicit drug use. She is . She previously said she is a DNR. Today, she was not certain and said maybe she would not want to be resuscitated. Her medical decision maker will be her . His name is Giovanni Lopes and he is at the bedside. FAMILY HISTORY: No significant family medical history per the patient. ALLERGIES: 1. SHE WAS TOLD ONE TIME NOT TO TAKE IODINE, BUT IT WAS THEY BELIEVE DUE TO NOT WANTING TO HURT THE KIDNEYS. 2. LATEX. 3. LYRICA. 4. ERYTHROMYCIN. 5. TERRAMYCIN. CURRENT MEDICATIONS: 1. Famotidine 20 mg daily. 2. Plavix 75 mg daily. 3. Isosorbide mononitrate 30 mg daily. 4. Hydralazine 25 mg twice a day. 5. Carvedilol 6.25 mg 2 tablets twice a day. 6. Losartan 50 mg daily. 7. Atorvastatin 80 mg daily. 8. Sevelamer carbonate 800 mg daily at bedtime. PHYSICAL EXAMINATION: VITAL SIGNS: Blood pressure 152/61, pulse 79, respirations 20, temperature 98.6, O2 saturation 100% on 4 L nasal cannula. GENERAL: This is a well-developed, elderly white female, in no acute distress. HEENT: Pupils are equal, round, and reactive to light. Oropharynx is clear without lesions, erythema, or exudate. NECK: Supple. No lymphadenopathy. No thyroid nodules or enlargement. No JVD. HEART: Regular rate and rhythm. No murmurs, rubs, or gallops. LUNGS: Clear to auscultation bilaterally. No wheezes, crackles, or rhonchi. ABDOMEN: Soft and nontender to palpation. Normoactive bowel sounds. No hepatosplenomegaly or other masses. EXTREMITIES: The patient's left foot has cellulitis of the toes, black eschar and necrosis of the second toe, and also some cellulitis going on to the forefoot to about midway of the foot that is tender to palpation, mildly warm, and erythematous. The patient has a barely palpable dorsalis pedis pulse. The other foot has poor pulse as well, but has no evidence of infection or injury. The patient does have tenderness in the forefoot, but not tenderness in the toes themselves. She does not appear to have some decreased sensation there. SKIN: See extremity exam above. No other rashes noted. NEUROLOGIC: Decreased sensation in the toes. Otherwise intact strength and sensation in all extremities. No facial droop. PSYCHIATRIC: Alert and oriented x3. Normal mood and affect. LABORATORY DATA: CBC with a white blood cell count of 12,000, 79% neutrophils, hemoglobin 9.6, hematocrit 32.0, and platelet count 308. Complete metabolic panel is notable for potassium of 3.2, chloride of 96, carbon dioxide of 33, creatinine of 3.41, glucose of 204. The rest was normal. Lactic acid was initially elevated at 2.5. I did review the x-ray of the foot done in the emergency room along with the radiologist's report. It does show osteopenia and a persistent bony deformity of the proximal second toe, which may be an old chronic fracture. It does not appear different from her previous x-ray comparison from one month ago. ASSESSMENT: 1. Diabetic foot infection with necrotic toe and cellulitis. The patient has been given cefepime and vancomycin in the emergency room. We will continue these with renal dosing. She was bolused with fluids in the emergency room and has now been hypertensive. We will hold on further fluid administration given her end-stage renal disease status and her recent volume overload. Cultures are pending. 2. Peripheral vascular disease with poor flow into the foot where the infection is at. I will consult Dr. Augustin for evaluation to see if anything can be done to improve the blood flow or if the patient will need amputation. 3. End-stage renal disease, on dialysis. We will consult Dr. Moss. He has already been notified by the emergency room that his patient is here. 4. Diabetes mellitus type 2. We will get fingerstick blood sugars q.a.c. and at bedtime with a light insulin sliding scale. 5. Coronary artery disease with diastolic congestive heart failure, currently at baseline. We will continue oxygen. We will continue her home medications. 6. Gastrointestinal prophylaxis. We will continue the patient on Pepcid given her history of gastrointestinal bleed. 7. Deep venous thrombosis prophylaxis. We will put the patient on heparin subcutaneous. CODE STATUS: Currently, the patient is full code. I will have Palliative Care discuss this with her further and see if she really wants to be a DNR. Her medical decision maker, should she be incapacitated, is her , Giovanni Lopes. Job ID: [id number]
[2020-09-10 17:23] LABS: Lactic Acid 1.7 mmol/L (0.5-2.2)
--- NOTE | 2020-09-10 17:48 | CON ---
DATE OF CONSULTATION: HISTORY OF PRESENT ILLNESS: This is an 80-year-old female who has been on chronic hemodialysis for the past 6 years. She currently dialyzes Monday, Monday, and Monday. She has been nonambulatory for the past 2 years, but is able to painter set place according to her . In any event, she was recently hospitalized for chronic diastolic heart failure with volume overload and after workup including cardiac echo showing preserved systolic function, she underwent vigorous hemodialysis regimen and was discharged to rehab. Subsequent to podiatry, toenail clippings and dressings were removed by the today. She was found to have multiple drainage sites and a black of second left toe. She was then brought to the emergency room. PAST MEDICAL HISTORY: Significant for longstanding diabetes mellitus, hypertension, dyslipidemia, end-stage renal disease, diastolic heart failure, coronary artery disease, status post coronary bypass grafting at [facility] in 1988 and then stent procedures about [address] Rasmussen and more recently by Dr. León. She also had removal of a tumor from her left kidney about 6 years ago at [facility] at which time, she suffered a postoperative PR. PAST SURGICAL HISTORY: Otherwise, includes partial right hip replacement, breast tumor removal, tonsillectomy. SOCIAL HISTORY: She lives with her in the [place] area at least that is where she does her hemodialysis. MEDICATIONS: Include: 1. Pepcid. 2. Plavix. 3. Isosorbide. 4. Hydralazine. 5. Coreg. 6. Losartan. 7. Atorvastatin. ALLERGIES: TO ERYTHROMYCIN, LYRICA, LATEX. PHYSICAL EXAMINATION: GENERAL: She is alert, cooperative lady with a small statured, light weight of about 100 pounds, in no distress. NECK: No carotid bruits. LUNGS: Clear to auscultation. CARDIAC: Reveals a soft systolic murmur. Regular rhythm. ABDOMEN: Obese, nontender, and faint left flank scar. EXTREMITIES: She has palpable femoral pulses and a weak, but present right popliteal pulse. She has a relatively preserved Doppler signal in her right dorsalis pedis with no palpable pulse and the foot appears pale, but unremarkable. On the left foot, she has no significant Doppler signal in the DP or PT distribution, but does have a preserved peroneal signal. Her left second toe is necrotic. She has necrotic skin over the first metatarsal head medially and over the fifth metatarsal head laterally. She has a cellulitis. Her toes are stuck together and appear macerated. Any attempt to move them at the present time is accompanied by pain. PLAN: At this time is for angiography to assess for any superficial femoral artery disease that might be improved. Overall, I think the prognosis is poor for limb salvage and the patient is nonambulatory, so we will probably be looking at an above-knee amputation if the circulatory status cannot be improved. Job ID: [id number] [facility]
--- NOTE | 2020-09-10 17:58 | CON ---
DATE OF CONSULTATION: 09/10/2020 CONSULTING PHYSICIAN: Franc Juarez MD REASON FOR CONSULTATION: End-stage renal disease evaluation and care. REASON FOR ADMISSION: Infection of the foot. HISTORY OF PRESENT ILLNESS: An 80-year-old white female with history of coronary artery disease, type 2 diabetes, CABG, end-stage renal disease, peripheral vascular disease, came to the hospital with left foot pain. No fever or chills. No nausea or vomiting. The patient recently had some toenails cut, and after that, she started noticing some redness. No chest pain or palpitation. The patient due for dialysis tomorrow. She usually gets dialysis Monday, Monday, and Monday. Cardiovascular surgeon was also evaluating her and plan is to have a contrast study tomorrow. PAST MEDICAL HISTORY: Positive for coronary artery disease; end-stage renal disease, on hemodialysis; congestive heart failure; type 2 diabetes; anemia; GI bleed; chronic hypoxic respiratory failure. PAST SURGICAL HISTORY: CABG, hemorrhoidectomy, hip surgery, breast tumor removal, tonsillectomy, D and C, coronary artery stent. HOME MEDICATIONS: Reviewed. ALLERGIES: NO KNOWN DRUG ALLERGIES. SOCIAL HISTORY: No smoking, alcohol, or illicit drugs. FAMILY HISTORY: No history of kidney disease. REVIEW OF SYSTEMS: The following complete review of systems was negative, unless otherwise mentioned in the HPI or below: CONSTITUTIONAL: Weight loss or gain, ability to conduct usual activities. SKIN: Rash, itching. EYES: Double vision, pain. ENT/MOUTH: Nose bleeding, neck stiffness, pain, tenderness. CARDIOVASCULAR: Palpitations, dyspnea on exertion, orthopnea. RESPIRATORY: Shortness of breath, wheezing, cough, hemoptysis, fever or night sweats. GASTROINTESTINAL: Poor appetite, abdominal pain, heartburn, nausea, vomiting, constipation, or diarrhea. GENITOURINARY: Urgency, frequency, dysuria, nocturia. MUSCULOSKELETAL: Pain, swelling. NEUROLOGIC/PSYCHIATRIC: Anxiety, depression. ALLERGY/IMMUNOLOGIC: Skin rash, bleeding tendency. PHYSICAL EXAMINATION: GENERAL: This is a well-built female, in no apparent distress. VITAL SIGNS: Reviewed. HEENT: Atraumatic, normocephalic. Oral mucosa moist. NECK: Supple. CV: S1, S2 heard. Rate and rhythm regular. RESPIRATORY: Clear. GI: Abdomen is soft. MUSCULOSKELETAL: No tenderness, no edema, but left leg with gangrenous toe and redness. DERMATOLOGIC: No skin rash. NEUROLOGIC: Alert and awake. PSYCHIATRIC: Normal mood and affect. LABORATORY DATA: Hemoglobin 9.6. Potassium 3.2, BUN is 20, creatinine is 3.4. ASSESSMENT AND PLAN: 1. End-stage renal disease. Plan to have dialysis tomorrow after the contrast study. 2. Hypokalemia. 3. Edema. 4. Hypertension. 5. Anemia of chronic disease. 6. Peripheral vascular disease. Follow with primary team. 7. Possible cellulitis. Continue antibiotics. Monitor vancomycin level. Continue antibiotics. We will have dialysis Monday, Monday, and Monday. Plan to have dialysis tomorrow. Job ID: [id number]
[2020-09-10 18:37] VITALS: BMI 18.8
[2020-09-10] MEDS ORDERED: Acetaminophen 325 MG TAB PO PRN (18:40)
[2020-09-10] MEDS ORDERED: Acetaminophen 650 MG Suppository PR PRN (18:40)
[2020-09-10] MEDS ORDERED: Ondansetron ODT 4 MG TAB PO PRN (18:40)
[2020-09-10] MEDS ORDERED: Dextrose 5% in Water 1,000 ML IV PRN (18:40)
[2020-09-10] MEDS ORDERED: Guaifenesin DM 100-10/5 ML UDCUP PO PRN (18:40)
[2020-09-10] MEDS ORDERED: Dextrose 50% Abboject 50 ML SYRINGE SLOW IVP PRN (18:40)
[2020-09-10] MEDS ORDERED: HumaLOG 300 UNITS/3 ML VIAL SC PRN ×2 (18:40)
[2020-09-10] MEDS ORDERED: Senokot S 8.6-50 MG TAB PO PRN (18:40)
[2020-09-10] MEDS ORDERED: Ondansetron PF 4 MG/2 ML Vial IVP PRN (18:40)
[2020-09-10] MEDS ORDERED: HYDROcodone/Acetaminophen 5/325 mg Tablet PO PRN ×2 (18:40)
[2020-09-10] MEDS ORDERED: HOLD VANCOMYCIN FOR LEVEL >20 FS SCH (19:15)
[2020-09-10] MEDS ORDERED: Vancomycin HCl 750 MG in Sodium Chloride 0.9% 250 ML 250 ML IVPB SCH (19:15)
[2020-09-10] MEDS ORDERED: Vancomycin 1 GM in Premix Bag 1 BAG IVPB SCH (19:15)
[2020-09-10] MEDS ORDERED: Vancomycin HCl 250 MG in Sodium Chloride 0.9% 100 ML IVPB SCH (19:15)
[2020-09-10] MEDS ORDERED: Vancomycin HCl 500 MG in Sodium Chloride 0.9% 100 ML IVPB SCH (19:15)
[2020-09-10] MEDS: Carvedilol 6.25 MG TAB PO SCH (20:58)
[2020-09-10] MEDS: Losartan 25 MG TAB PO SCH (20:58)
[2020-09-10] MEDS: Atorvastatin Calcium 40 MG TAB PO SCH (20:58)
[2020-09-10] MEDS: FLUoxetine HCl 20 MG CAP PO SCH (20:59)
[2020-09-10] MEDS: Sevelamer Carbonate 800 MG TAB PO SCH (20:59)
[2020-09-10] MEDS: Heparin 5,000 UNITS/ML VIAL SC SCH (20:59)
[2020-09-10] MEDS: hydrALAZINE 25 MG TAB PO SCH (20:59)
--- NOTE | 2020-09-11 08:10 | PDOC.HOSPP ---
- Subjective Encounter Date: 09/11/20 Encounter Time: 10:00 Subjective: Patient without complaint. Pain improved in left foot. Seen in dialysis after angiography. - Objective Vital Signs & Weight: Vital Signs (12 hours) Temp Pulse Resp BP Pulse Ox 09/11/20 04:00 98.2 F 65 15 129/58 L 97 09/11/20 00:00 122/58 L 09/10/20 20:59 76 Weight Weight 102 lb 11.2 oz Result Diagrams: 09/10/20 13:09 09/10/20 12:34 Additional Labs: Accuchecks 09/11/20 09/10/20 06:19 20:27 POC Glucose 142 H 196 H EKG Reviewed by me: Yes (bradycardia on tele, no other arrhythmia) Hospitalist ROS - Review of Systems Constitutional: denies: fever, chills Respiratory: denies: cough, shortness of breath Cardiovascular: denies: chest pain, palpitations Gastrointestinal: denies: nausea, vomiting, abdominal pain - Medication Medications: Active Medications Generic Name Dose Route Start Last Admin Trade Name Freq PRN Reason Stop Dose Admin Atorvastatin Calcium 80 mg 09/10/20 21:00 09/10/20 20:58 Atorvastatin Calcium 40 Mg Tab PO 80 mg HS ROSALIND Administration Carvedilol 12.5 mg 09/10/20 21:00 09/10/20 20:58 Carvedilol 6.25 Mg Tab PO 12.5 mg BID ROSALIND Administration Fluoxetine HCl 20 mg 09/10/20 21:00 09/10/20 20:59 Fluoxetine Hcl 20 Mg Cap PO 20 mg BID ROSALIND Administration Heparin Sodium (Porcine) 5,000 units 09/10/20 21:00 09/10/20 20:59 Heparin 5,000 Units/Ml Vial SC 5,000 units TID ROSALIND Administration Hydralazine HCl 25 mg 09/10/20 21:00 09/10/20 20:59 Hydralazine 25 Mg Tab PO 25 mg TID ROSALIND Administration Losartan Potassium 50 mg 09/10/20 21:00 09/10/20 20:58 Losartan 25 Mg Tab PO 50 mg HS ROSALIND Administration Sevelamer Carbonate 800 mg 09/10/20 21:00 09/10/20 20:59 Sevelamer Carbonate 800 Mg Tab PO 800 mg HS ROSALIND Administration - Exam General Appearance: NAD, awake alert ENT: moist mucosa Heart: RRR, no murmur, no gallops, no rubs Respiratory: CTAB, no wheezes, no rales, no ronchi Gastrointestinal: soft, non-tender, non-distended, normal bowel sounds Extremities - other findings: redness on left foot resolved, persistent necrotic eschar worse 2nd toe Psychiatric: normal affect, normal behavior, A&O x 3 Hosp A/P (1) Cellulitis Code(s): L03.90 - CELLULITIS, UNSPECIFIED Status: Acute (2) Necrosis of toe Code(s): I96 - GANGR[place], NOT ELSEWHERE CLASSIFIED Status: Acute (3) Sepsis Code(s): A41.9 - SEPSIS, UNSPECIFIED ORGANISM Status: Acute (4) CHF (congestive heart failure) Code(s): I50.9 - HEART FAILURE, UNSPECIFIED Status: Chronic Qualifiers: Heart failure type: diastolic Heart failure chronicity: chronic Qualified Code(s): I50.32 - Chronic diastolic (congestive) heart failure (5) PVD (peripheral vascular disease) Code(s): I73.9 - PERIPHERAL VASCULAR DISEASE, UNSPECIFIED Status: Chronic (6) Chronic respiratory failure with hypoxia Code(s): J96.11 - CHRONIC RESPIRATORY FAILURE WITH HYPOXIA Status: Chronic Plan: On her home 4L [place] O2 (7) ESRD (end stage renal disease) on dialysis Code(s): N18.6 - END STAGE RENAL DISEASE; Z99.2 - DEPENDENCE ON RENAL DIALYSIS Status: Chronic (8) HTN (hypertension) Code(s): I10 - ESSENTIAL (PRIMARY) HYPERTENSION Status: Chronic Qualifiers: Hypertension type: essential hypertension Qualified Code(s): I10 - Essential (primary) hypertension (9) Hypokalemia Code(s): E87.6 - HYPOKALEMIA Status: Acute (10) Anemia, chronic disease Code(s): D63.8 - ANEMIA IN OTHER CHRONIC DISEASES CLASSIFIED ELSEWHERE Status: Chronic (11) CAD (coronary artery disease) Code(s): I25.10 - ATHSCL HEART DISEASE OF [place] CORONARY ARTERY W/O ANG PCTRS Status: Chronic - Plan Patient on Cefepime and Vancomycin, blood cultures pending. Cellulitis resolving. Appreciate Dr. Augustin's assistance. Got angiography of LLE to see if can improve blood flow. Likely will end up needing AKA if this cannot be improved. Dialysis as per Dr. Moss DVT Proph: Heparin sc GI Proph: Pepcid
[2020-09-11] MEDS: Carvedilol 6.25 MG TAB PO SCH ×2 (08:21→21:31)
[2020-09-11] MEDS: FLUoxetine HCl 20 MG CAP PO SCH ×2 (08:21→20:35)
[2020-09-11] MEDS: hydrALAZINE 25 MG TAB PO SCH ×3 (08:22→20:37)
[2020-09-11] MEDS: Heparin 5,000 UNITS/ML VIAL SC SCH ×3 (08:22→20:39)
[2020-09-11] MEDS ORDERED: Clopidogrel Bisulfate 75 MG TAB PO SCH (09:00)
[2020-09-11] MEDS ORDERED: Famotidine 20 MG TAB PO SCH (09:00)
[2020-09-11] MEDS ORDERED: Heparin 10,000 UNITS/ 10 ML VIAL ONE (10:43)
[2020-09-11] MEDS ORDERED: Protamine Sulfate 50 MG/5 ML VIAL ONE (11:05)
[2020-09-11] MEDS ORDERED: Cefepime 0.5 GM, Admixture Fee 1 EACH in Sodium Chloride 0.9% 100 ML IVPB SCH ×2 (14:00→16:00)
[2020-09-11] MEDS ORDERED: Iopamidol 370 76% 50 ML VIAL FS ONE (14:19)
[2020-09-11 14:55] LABS: SARS-CoV-2 MS2 Positive; SARS-CoV-2 N Gene Negative; SARS-CoV-2 S Gene Negative; SARS-CoV-2 by NAA Not Detected (NotDetected); SARS-CoV-2 orf1ab Negative
[2020-09-11 17:06] LABS: Vancomycin, Trough 9.9 ug/mL
--- NOTE | 2020-09-11 17:35 | PRG ---
DATE OF SERVICE: 09/11/2020 SUBJECTIVE: Patient was seen and examined at bedside and overnight events noted. Patient denies any shortness of breath or chest pain or palpitation. No history of nausea or vomiting or diarrhea or fever or chills or cramps. OBJECTIVE: General: This is a well-built female, in no apparent distress. Vital Signs: Temperature 97.7. Heart Rate 60. Respiratory rate . Blood pressure 110/52. HEENT: Atraumatic, normocephalic. Oral mucosa is moist. Neck: Supple. Cardiovascular: S1, S2 heard. Rate and rhythm regular. Respiratory: Clear to auscultation. Gastrointestinal: Abdomen is soft. Musculoskeletal: No tenderness. No edema. Dermatologic: No skin rash. Neurologic: Alert and awake and oriented x3. No focal neurologic deficits. Moving all the extremities. Psychiatric: Mood and affect normal. LABORATORY DATA: Not done today. ASSESSMENT AND PLAN: 1. End-stage renal disease. Continue dialysis as tolerated. 2. Hypokalemia. 3. Edema. 4. Hypertension. 5. Anemia of chronic disease. 6. Continue dialysis Monday, Monday, Monday as tolerated. Job ID: [id number]
[2020-09-11] MEDS: Sevelamer Carbonate 800 MG TAB PO SCH (20:35)
[2020-09-11] MEDS: Atorvastatin Calcium 40 MG TAB PO SCH (20:35)
[2020-09-11] MEDS: Losartan 25 MG TAB PO SCH (21:31)
[2020-09-11 23:00] VITALS: TEMP 97.6
[2020-09-12 00:18] VITALS: BP 156/68
[2020-09-12] MEDS ORDERED: EPINEPHrine 1 MG/10 ML Abboject SYRINGE ONE ×3 (04:23→04:41)
[2020-09-12] MEDS ORDERED: EPINEPHrine 4 MG in Dextrose 5% in Water 250 ML IV SCH (04:45)
--- NOTE | 2020-09-12 05:05 | PDOC.BPN ---
<Hebert Leal - Last Filed: 09/12/20 04:54> - Brief Progress Note Encounter Date: 09/12/20 Encounter Time: 04:00 Event Note: Code Blue. Arrived to room. Nurse explained patient became tachycardic then bradycardic and then unresponsive. She is a HD patient. Initiated compressions. Received 7 pushes of epi and 2 pushes of bicarb. Fasciculations of heart noted on ultrasound and faint palpable femoral pulse. Started an epi drip at 10 and intubated patient. Pushed calcium chloride. Resumed compressions. No pulse by palpation or doppler. Time of called at 0440. HEENT: pupils fixed and dilated Card: No pulse, no auscultated heart sounds Resp: No spontaneous respirations Neuro: No withdrawal to painful stimuli TOD: 09/12/2020, 0440 <Cameron Malin - Last Filed: 09/12/20 05:17> - Brief Progress Note I ,Cameron Malin DO, was present for the code and assisted with decision making a procedures. Dr. Cuong Gibson was present as attending physician.
--- NOTE | 2020-09-12 21:07 | DIS ---
DATE OF ADMISSION: 09/10/2020 DATE OF DISCHARGE: 09/12/2020 REASON FOR ADMISSION: Diabetic infection of foot with cellulitis and sepsis. CAUSE OF : Sepsis due to cellulitis secondary to peripheral vascular disease with necrotic ulcers of the left toes and foot secondary to diabetes mellitus type 2 and end-stage renal disease. 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 TIME OF : 04:40 on 09/12/2020. SUMMARY OF HOSPITAL COURSE: This is an 80-year-old white female with a history of diabetes, coronary artery disease, end-stage renal disease, and peripheral vascular disease. She came in with a wound on her left foot after having had a bandage on it tightly from having her toes trimmed a couple of weeks ago, noted to have cellulitis and multiple areas of necrosis with black eschar including on the medial foot and on the 2nd toe. The patient was also found to be in sepsis. She was given fluids and IV antibiotics, was admitted to the hospital. She had dialysis continued at the hospital and Dr. Augustin was consulted and did an angiogram to see if there is any way to improve blood flow to her foot for healing purposes. The patient had been improving; however, early this morning, she was noted on the manager fashion to become tachycardic and then to become bradycardic and lose her pulse. A code was called, resuscitation was attempted. However, they were unable to reestablish a perfusing rhythm and pulse and so the patient was declared . Her body is being discharged to the home, no autopsy per the family. Job ID: [id number] [facility]
--- NOTE | 2020-09-13 13:31 | OP ---
DATE OF PROCEDURE: 09/11/2020 PREOPERATIVE DIAGNOSIS: Gangrene, left foot. PROCEDURES PERFORMED: Aortogram; iliofemoral and left lower extremity runoff with angioplasty of the left superficial and popliteal artery. ANESTHESIA: 1% lidocaine local. DESCRIPTION OF PROCEDURE: After prepping and draping the right groin, 1% lidocaine was used to infiltrate the right groin. An ultrasound-guided puncture of the calcified common femoral artery was performed. 5-Liberian dilator and sheath were placed. Contra catheter was advanced into the aorta and aortoiliofemoral runoff obtained. Following this, the Contra catheter was chased with by over a wire into the left common femoral artery where runoff of the left leg was obtained. A 6-Liberian Destination sheath was then placed over the wire and heparin given with an ACT of about 230 seconds. A Ray 220 x 3 balloon was then used to predilate the entire superficial and popliteal artery to below the knee. Following which, two #4 x 150 Lutonix balloons were used to inflate the superficial femoral artery and the popliteal artery in their entirety. Following completion of this, there was a good result, however, runoff below the knee was still isolated to a peroneal artery that filled via collaterals. Attempts to advance a Luge wire over the Ray balloon down the tibioperoneal trunk were unsuccessful. The wire and sheath to be removed after protamine administration. FINDINGS: The patient had multiple subtotal lesions involving the superficial and popliteal artery. There were 3 subtotal lesions and general heavy calcification. The origin of the SFA had about 60% lesion. Following completion of the angiograms, the 60% lesion at the origin of the SFA persisted even though it had been dilated with a 4 mm balloon, but the remainder of the superficial and popliteal artery showed good result. Job ID: [id number]
== END 2020-09-12 11:02 | disposition expired | DRG 853 ==
LOC: ERS 11:44 → ERHOLD 14:27 → 2NO 18:21
PROVIDERS: ADMIT Emergency Medicine; ATTEND Emergency Medicine
PROC: 3E033XZ Introduction of Vasopressor into Peripheral Vein, Percutaneous Approach (ICD-10-PCS; 2020-09-10)
PROC: 047L3Z1 Dilation of Left Femoral Artery using Drug-Coated Balloon, Percutaneous Approach (ICD-10-PCS; principal; 2020-09-11)
PROC: 047N3Z1 Dilation of Left Popliteal Artery using Drug-Coated Balloon, Percutaneous Approach (ICD-10-PCS; 2020-09-11)
PROC: B4101ZZ Fluoroscopy of Abdominal Aorta using Low Osmolar Contrast (ICD-10-PCS; 2020-09-11)
PROC: 5A1D70Z Performance of Urinary Filtration, Intermittent, Less than 6 Hours Per Day (ICD-10-PCS; 2020-09-11)
PROC: 0BH17EZ Insertion of Endotracheal Airway into Trachea, Via Natural or Artificial Opening (ICD-10-PCS; 2020-09-12)
DX: A41.9 Sepsis, unspecified organism (principal); N18.6 End stage renal disease; E11.52 Type 2 diabetes mellitus with diabetic peripheral angiopathy with gangrene; I50.32 Chronic diastolic (congestive) heart failure; J96.11 Chronic respiratory failure with hypoxia; I13.2 Hypertensive heart and chronic kidney disease with heart failure and with stage 5 chronic kidney disease, or end stage renal disease; I70.262 Atherosclerosis of native arteries of extremities with gangrene, left leg; I25.10 Atherosclerotic heart disease of native coronary artery without angina pectoris; E11.22 Type 2 diabetes mellitus with diabetic chronic kidney disease; Z20.828 Contact with and (suspected) exposure to other viral communicable diseases; Z96.641 Presence of right artificial hip joint; E11.628 Type 2 diabetes mellitus with other skin complications; E78.5 Hyperlipidemia, unspecified; L03.032 Cellulitis of left toe; E11.621 Type 2 diabetes mellitus with foot ulcer; L97.529 Non-pressure chronic ulcer of other part of left foot with unspecified severity; D63.1 Anemia in chronic kidney disease; R00.0 Tachycardia, unspecified; R00.1 Bradycardia, unspecified; R25.3 Fasciculation; Z95.1 Presence of aortocoronary bypass graft; Z90.89 Acquired absence of other organs; Z95.5 Presence of coronary angioplasty implant and graft; Z98.890 Other specified postprocedural states; Z88.1 Allergy status to other antibiotic agents; Z88.8 Allergy status to other drugs, medicaments and biological substances; Z91.040 Latex allergy status; Z79.02 Long term (current) use of antithrombotics/antiplatelets; Z79.899 Other long term (current) drug therapy; Z91.041 Radiographic dye allergy status; I25.2 Old myocardial infarction; Z99.2 Dependence on renal dialysis
CPT/HCPCS: 36415; 36416; 37224; 77002; 80053; 80202; 83605; 85025; 85347; 87040; 87635; 92950; 96365; 96366; 96367; C2623; J0171; J0692; J1644; J2720; J3370; J3490; J7050; Q9967; U0003